=== PATIENT | female | born 1980 | race Hispanic/Latino ===

== ENCOUNTER 2018-08-25 20:17 | Emergency (ER) | payer OTHER ==
[2018-08-25 20:29] VITALS: O2SAT 98
[2018-08-25] MEDS ORDERED: Sodium Chloride 0.9% 1,000 ML IV STA (20:53)
--- NOTE | 2018-08-25 21:48 | ED PDOC ---
History of Present Illness History of Present Illness: 37 year old female with a history of Juan's thyroiditis and hypothyroidism presents to the ED with fever and chills for one day. Patient reports she began to develop fever, chills and chest tightness a few hours ago. Tmax 101.9F. She took Motrin prior to arrival. Patient did not receive a flu shot this year. Denies cough, vomiting and diarrhea. PMD: Dr. Azeb Andrews HPI: Influenza Time Seen by Provider: 08/25/18 20:44 Chief Complaint: Chest Pain Chief Complaint (Provider): Fever History Per: Patient Exam Limitations: no limitations Onset/Duration Of Symptoms: Hrs (x 5) Symptoms include: fever, chest pain, other (chills) Hx Influenza Vaccination: No Risk factors for flu complications: Yes: endocrine disorders (Juan's and hypothyroidism) Past Medical History Reviewed: Historical Data, Nursing Documentation, Vital Signs Vital Signs: Last Vital Signs Temp 99.5 F 08/25/18 20:26 Pulse 101 H 08/25/18 20:26 Resp 16 08/25/18 20:26 BP 133/82 08/25/18 20:26 Pulse Ox 98 08/25/18 20:26 - Medical History PMH: Hyperthyroidism Other PMH: Juan's thyroiditis - Surgical History Other surgeries: left knee - Family History Family History: States: No Known Family Hx - Home Medications Home Medications: Ambulatory Orders Medication Instructions Recorded Oseltamivir Cap [Tamiflu] 75 mg PO BID #10 cap 08/25/18 - Allergies Allergies/Adverse Reactions: Allergies Allergy/AdvReac Type Severity Reaction Status Date / Time No Known Allergies Allergy Verified 08/25/18 20:25 Review of Systems ROS Statement: Except As Marked, All Systems Reviewed And Found Negative Constitutional: Positive for: Fever, Chills Cardiovascular: Positive for: Chest Pain (tightness) Respiratory: Negative for: Cough, Shortness of Breath Gastrointestinal: Negative for: Vomiting, Diarrhea Physical Exam - Reviewed Nursing Documentation Reviewed: Yes Vital Signs Reviewed: Yes - Physical Exam Appears: Positive for: Non-toxic, No Acute Distress Head Exam: Positive for: ATRAUMATIC, NORMAL INSPECTION, NORMOCEPHALIC Skin: Positive for: Normal Color, Warm, Dry Eye Exam: Positive for: EOMI, Normal appearance, PERRL ENT: Positive for: Normal ENT Inspection Neck: Positive for: Normal, Painless ROM, Supple Cardiovascular/Chest: Positive for: Tachycardia (with regular rhythm). Negative for: Murmur Respiratory: Positive for: Normal Breath Sounds. Negative for: Respiratory Distress Gastrointestinal/Abdominal: Positive for: Normal Exam, Soft. Negative for: Tenderness, Mass, Guarding Back: Positive for: Normal Inspection. Negative for: L CVA Tenderness, R CVA Tenderness Extremity: Positive for: Normal ROM (x 4). Negative for: Deformity Neurologic/Psych: Positive for: Alert, Oriented (x 3). Negative for: Motor/Sensory Deficits Medical Decision Making Medical Decision Makin:59 Impression: 37 year old female with flu-like symptoms Initial Plan: --CBC --CMP --Lactic acid --NS IV --Tylenol 975 mg PO --Blood cx --Influenza AB --UA 00:53 Labs reviewed and reveal no clinically significant for abnormalities. Will treat empirically for influenza given high probability based on patient's probability. Diagnosis is influenza-like illness. Return precautions provided. Scribe Attestation: Documented by Mi Rene acting as a scribe for Aniket Jones MD Provider Scribe Attestation: All medical record entries made by the Scribe were at my direction and personally dictated by me. I have reviewed the chart and agree that the record accurately reflects my personal performance of the history, physical exam, m edical decision making, and the department course for this patient. I have also personally directed, reviewed, and agree with the discharge instructions and disposition. - Laboratory Results Result Diagrams: 08/25/18 21:50 08/25/18 21:50 - ECG O2 Sat by Pulse Oximetry: 98 (RA) Pulse Ox Interpretation: Normal Disposition - Clinical Impression Clinical Impression: Influenza-like illness - Patient ED Disposition Is Patient to be Admitted: No - Disposition Disposition: Routine/Home Disposition Time: 22:53 (\) Condition: IMPROVED Additional Instructions: CHRISTOS JC, thank you for letting us take care of you today. Your provider was Aniket Jones MD and you were treated for CHEST PAIN. The emergency medical care you received today was directed at your acute symptoms. If you were prescribed any medication, please fill it and take as directed. It may take several days for your symptoms to resolve. Return to the Emergency Department if your symptoms worsen, do not improve, or if you have any other problems. Please contact your doctor or call one of the physicians/clinics you have been referred to that are listed on the Patient Visit Information form that is included in your discharge packet. Bring any paperwork you were given at discharge with you along with any medications you are taking to your follow up visit. Our treatment cannot replace ongoing medical care by a primary care provider outside of the emergency department. Thank you for allowing the [facility] team to be part of your care today. If you had an X-Ray or CT scan: A Radiologist will review the ED reading if any change in treatment is needed we will contact you. If you had a blood, urine, or wound culture: It will take several days for the results, if any change in treatment is needed we will contact you. If you had an STI test: It will take 48 hours for the results. Please call after 1 week if you have not heard back. Prescriptions: Oseltamivir Cap [Tamiflu] 75 mg PO BID #10 cap Instructions: Flu, Viral Syndrome (DC) Forms: [employer] ([place]ian), [facility] ED School/Work Excuse
[2018-08-25 22:01] LABS: BASO % 0.4 % (0.0-2.0); EOS # 0.1 K/uL (0.0-0.7); EOS % 2.5 % (0.0-4.0); HEMOGLOBIN 12.5 g/dL (12.0-16.0); LYMPH # 0.5 K/uL (1.0-4.3); LYMPH % 11.5 % (20.0-40.0); MEAN CELL VOLUME 87.2 fl (81.0-99.0); MEAN CORPUSCULAR HEMOGLOBIN 28.7 pg (27.0-31.0); MONO # 0.5 K/uL (0.0-0.8); MONO % 11.1 % (0.0-10.0); NEUT # 3.5 K/uL (1.8-7.0); NEUT % 74.5 % (50.0-75.0); NRBC % 0.1 % (0.0-0.0); RBC 4.35 Mil/uL (3.80-5.20); WHITE BLOOD COUNT 4.6 K/uL (4.8-10.8)
[2018-08-25 22:12] LABS: ALB/GLOB RATIO 1.2 (1.0-2.1); ALT/SGPT 27 U/L (9-52); AST/SGOT 31 U/L (14-36); BLOOD UREA NITROGEN 13 mg/dl (7-17); CALCIUM 9.3 mg/dL (8.4-10.2); GFR NON-AFRICAN AMERICAN > 60
[2018-08-25 22:33] LABS: URINE BILIRUBIN NEGATIVE (NEGATIVE); URINE BLOOD NEGATIVE (NEGATIVE); URINE CLARITY CLEAR (Clear); URINE COLOR STRAW (YELLOW); URINE GLUCOSE (UA) NEG (NEGATIVE); URINE LEUKOCYTE ESTERASE NEG Leu/uL (Negative); URINE PROTEIN NEGATIVE (NEGATIVE); URINE UROBILINOGEN 0.2-1.0 mg/dL (0.2-1.0)
[2018-08-25 23:48] VITALS: BP 127/79; PULSE 77; RESP 15; TEMP 98.7
--- NOTE | 2018-08-26 08:53 | CARD ---
APPROVED REPORT Date of service: 08/25/2018 EKG Measurement Heart [id number] <Conclusion> Sinus tachycardia Otherwise normal ECG
== END 2018-08-25 23:48 | disposition home or self-care (01) ==
LOC: H.ER 20:17
DX: J11.1 Influenza due to unidentified influenza virus with other respiratory manifestations (principal); E06.3 Autoimmune thyroiditis
CPT/HCPCS: 80053; 81003; 81025; 83605; 85025; 87040; 87804; 93005; 99284; J7030